=== PATIENT | male | born 1955 | race Caucasian/White ===

== ENCOUNTER 2019-05-14 02:23 | Emergency (ER) | payer MEDICARE, OTHER, SELFPAY ==
[2019-05-14 02:44] VITALS: BP 164/95; PULSE 78; RESP 16; O2SAT 98; BMI 34.2
--- NOTE | 2019-05-14 02:57 | ED.ABDPAIN ---
HPI - Abdominal Pain General Chief Complaint: Urogenital-Male Stated Complaint: poss kidney stone Time Seen by Provider: 05/14/19 02:44 Source: patient Mode of arrival: ambulatory Limitations: no limitations History of Present Illness HPI narrative: This is a 63-year-old male who comes to the emergency department with complaint of right flank pain. He states it started yesterday at 7:00 a.m., resolved BiPAP at noon. Then returned this evening at about 2:00 a.m.. Patient states he has not had any fevers. He felt a little nauseated but no vomiting. He states pain started in his right flank and is starting to radiate around towards the front. Patient denies any pain into the testicles. He did note some hematuria and dark urine tonight. He states it was not yesterday. He denies any pain with urination or urgency frequency or dysuria. Denies any issues with bowel movements. Patient has had kidney stones in the past and states this feels similar. He states he takes medication for chronic back pain as well as mood. He denies any prior surgeries Related Data Previous Rx's Medication Instructions Recorded ketorolac 10 mg PO TID PRN #14 tab 05/14/19 oxycodone 5 mg PO Q4-6H PRN #14 tab 05/14/19 tamsulosin [Flomax] 0.4 mg PO DAILY #7 cap 05/14/19 Allergies Allergy/AdvReac Type Severity Reaction Status Date / Time No Known Drug Allergies Allergy Verified 05/14/19 05:00 Review of Systems Review of Systems ROS Unobtainable: All systems reviewed & are unremarkable except as noted in HPI and below Constitutional Constitutional: Reports chills, Denies fever(s), Denies lethargy and Denies weakness Cardiovascular Cardiovascular: Denies chest pain and Denies dyspnea Respiratory Respiratory: Denies dyspnea Gastrointestinal Gastrointestinal: Reports abdominal pain (Right flank and belly), Denies change in bowel habits, Denies constipation, Denies diarrhea, Reports nausea and Denies vomiting Genitourinary Genitourinary: Reports as per HPI, Denies hematuria, Denies difficulty urinating, Denies dysuria, Reports flank pain, Denies testicular pain, Denies urinary frequency, Denies urinary hesitancy, Denies urinary incontinence and Denies urinary urgency Neurologic Neurologic: Denies weakness [facility] Medical History (Updated 05/14/19 @ 03:06 by Debbie Chavez DO) Chronic back pain (Acute) Social History Smoking Status: Never smoker Social History Smoking Status: Never smoker Exam Narrative Exam Narrative: GENERAL: Alert and oriented x three, obese male in moderate distress. HEENT: Head normocephalic, atraumatic, EOMI, pupils reactive, face symmetric, moist mucous membranes NECK: Supple, full range of motion CARDIOVASCULAR: Regular rate and rhythm without murmurs, rubs or gallops. RESPIRATORY: Breath sounds equal bilaterally, no wheezes rales or rhonchi. ABDOMEN: Soft, nontender to palpation. Normoactive bowel sounds all 4 quadrants. No guarding or rebound, rigidity, no mass : Very mild right CVA tenderness EXTREMITIES: Normal range of motion, no clubbing or edema. Neurovascularly intact NEUROLOGICAL: Cranial nerves II through XII grossly intact. Moving all extremities SKIN: Warm, dry, no petechiae, no rashes or lesions. Initial Vital Signs Initial Vital Signs: Vital Signs Pulse Rate 78 05/14/19 02:44 Respiratory Rate 16 05/14/19 02:44 Blood Pressure 164/95 H 05/14/19 02:44 Pulse Oximetry 98 05/14/19 02:44 Course Orders Ordered: ED Orders 05/14/19 02:39 Urinalysis and Microscopic Stat Urine Culture Stat 05/14/19 02:41 Complete Blood Count AUTO DIFF Stat Comprehensive Metabolic Panel Stat 05/14/19 03:01 US renal complete Stat Discontinued Medications Sodium Chloride (Normal Saline 0.9%) 1,000 mls @ 1,000 mls/hr IV BOLUS ONE Stop: 05/14/19 04:02 Last Infusion: 05/14/19 04:29 Dose: 0 mls/hr Documented by: Admin: 05/14/19 03:09 Dose: 1,000 mls/hr Documented by: ANGLE Ketorolac Tromethamine (Toradol) 30 mg IV NOW ONE Stop: 05/14/19 02:58 Last Admin: 05/14/19 03:09 Dose: 30 mg Documented by: ANGLE Ondansetron HCl (Zofran) 4 mg IV NOW ONE Stop: 05/14/19 02:58 Last Admin: 05/14/19 03:09 Dose: 4 mg Documented by: ANGLE Oxycodone/Acetaminophen (Endocet 5/325 Prepack) 1 bottle MISC SEEINSTR ONE Stop: 05/14/19 04:35 Last Admin: 05/14/19 05:00 Dose: 1 bottle Documented by: ANGLE Tamsulosin HCl (Flomax) 0.4 mg PO NOW ONE Stop: 05/14/19 04:21 Last Admin: 05/14/19 04:30 Dose: 0.4 mg Documented by: ANGLE Vital Signs Vital signs: Vital Signs - 8 hr 05/14/19 02:44 05/14/19 04:31 05/14/19 05:07 Temperature 98.1 F Pulse Rate 78 82 83 Respiratory Rate 16 20 16 Blood Pressure 164/95 H 145/88 H Blood Pressure [Right Arm] 156/77 H Pulse Oximetry 98 99 96 MDM - Abdominal Pain Lab Data Attestation: I reviewed the patient's lab results. Result diagrams: 05/14/19 02:41 05/14/19 02:41 Labs: Lab Results 05/14/19 05/14/19 05/14/19 Range/Units 02:39 02:41 02:41 WBC 11.6 H (4.5-11.0) X10^3/uL RBC 5.49 (4.5-5.9) X10^6/uL Hgb 18.7 H (13.5-17.5) g/dL Hct 54.7 H (41-53) % MCV 99.5 (80-100) fL MCH 34.1 H (26-34) PG MCHC 34.3 (30-36) % RDW 14.0 (11.6-14.8) % Plt Count 232 (150-400) X10^3/uL Neut % (Auto) 74.9 (50-75) % Lymph % (Auto) 15.8 L (25-40) % Dane % (Auto) 6.9 (3-14) % Eos % (Auto) 2.0 (2-4) % Baso % (Auto) 0.4 (0-2) % Neut # (Auto) 8700 H (7248-2620) /uL Lymph # (Auto) 1800 (3131-1627) /uL [place]ane # (Auto) 800 (0-900) /uL Eos # (Auto) 200 (0-450) /uL Baso # (Auto) 100 (0-100) /uL Sodium 138 (137-145) mmol/L Potassium 4.1 (3.4-5.1) mmol/L Chloride 98 (98-107) mmol/L Carbon Dioxide 26 (22-32) mmol/L BUN 21 H (9-20) mg/dL Creatinine 0.90 (0.66-1.25) mg/dL Estimated GFR > 60.0 (>60) mL/min BUN/Creatinine Ratio 23.3 H (6-22) Glucose 202 H (80-110) mg/dL Calcium 9.8 (8.4-10.2) mg/dL Total Bilirubin 0.8 (0.2-1.3) mg/dL AST 36 (17-59) IU/L ALT 68 (21-72) IU/L Alkaline Phosphatase 61 (38-126) U/L Total Protein 7.8 (6.3-8.2) g/dL Albumin 4.6 (3.5-5.0) g/dL Globulin 3.2 (1.7-4.1) g/dL Albumin/Globulin Ratio 1.4 (1.0-2.8) Urine Color Brown Urine Appearance Sl cloudy Urine pH 5.0 (4.5-8.0) Ur Specific [place] >=1.030 H (1.000-1.035) Urine Protein 2+ H (Negative) Urine Glucose (UA) Negative (Negative) g/dL Urine Ketones Trace H (NEGATIVE) Urine Occult Blood 3+ H (Negative) Urine Nitrate Negative (Negative) Urine Bilirubin Negative (NEGATIVE) Urine Urobilinogen 0.2 (0.2) E.U./dL Ur Leukocyte Esterase Negative (NEGATIVE) Urine RBC >100/hpf (0-5/HPF) Urine WBC 0-1/hpf (0-5/HPF) Ur Squamous Epith Cells 0-1 /hpf (0-5/HPF) Urine Bacteria Moderate (10-30) H (None) Urine Mucus 1+ H (Negative) Ur Culture Indicated? Specimen cultured Imaging Data US - abdomen: Radiologist's impression: Patient has 9 mm calculus within the proximal right ureter. Mild right hydro. On the left patient has a midpole cyst measuring 1.3 x 1 x 1.2 cm. No significant free fluid in the pelvis. Bladder is nondistended limiting evaluation. MDM Narrative Medical decision making narrative: Patient show a elevated white count 11.6, patient elevated hemoglobin hematocrit 18 54. Platelets are normal. Patient's electrolytes are normal, BUN is elevated 21 but a normal creatinine. Glucose is elevated 202 with normal LFTs.. Patient urine shows occult blood, negative for nitrates and leukocyte esterase, patient has greater than 100 RBCs, WBC 0-1 with 0-1 squamous epithelials and moderate bacteria. Urine was cultured. Patient has not had any UTI symptoms. He has slightly elevated white count but afebrile. Would wait for urine culture before starting antibiotics. Ultrasound shows 9mm proximal right ureteral stone. Patient is much more comfortable after toradol. Spoke with Dr. Hammond at urology, he is happy to follow up with the patient on Sunday. He asked that we start him on Flomax for a couple weeks. Have patient call the office at [phone], discussed likely Sunday follow up. Patient is much more comfortable after toradol. Discussed reasons to return emergently, patient has contact information and will call today, we discussed that often patients with 9 mm stones are not able to pass these so follow-up is important. Discharge Plan Departure Patient Disposition: Home Clinical Impression: Kidney stone Discharge Date/Time: 05/14/19 05:07 Instructions: DI for Kidney Stones Activity Restrictions/Additional Instructions: Follow up with urology at , I spoke with Dr Hammond with urology. Call [phone] this morning for an appointment. Take disk of images with you to your appointment. Continue flomax once daily. You may take alleve twice daily OR ketorolac every 8 hours as needed for pain. You may take tylenol up to 1000mg every 8 hours as needed for pain. You may take this with ibuprofen and/or oxycodone. Take oxycodone 1 tablet every 4-6 hours for pain. This medication can make you sleepy do not drive, perform hazardous activities or make any major decisions while taking it. Return to the Emergency Department for fevers greater than 100.4 F, rapidly worsening abdominal or flank pain, persistent nausea or vomiting, inability to urinate, lightheadedness, passing out or other new or concerning symptoms. Prescriptions: New oxycodone 5 mg tablet 5 mg PO Q4-6H PRN (Reason: pain) Qty: 14 RF: 0 tamsulosin [Flomax] 0.4 mg capsule 0.4 mg PO DAILY Qty: 7 RF: 0 ketorolac 10 mg tablet 10 mg PO TID PRN (Reason: pain) Qty: 14 RF: 0 Referrals: Mian Hammond MD [Non-Staff] - Kathie Brandt ARNP [Primary Care Provider] -
--- NOTE | 2019-05-14 03:01 | DI.US.S_ITS ---
PROCEDURE: US RENAL COMPLETE INDICATIONS: RIGHT FLANK PAIN; HISTORY STONES TECHNIQUE: Real-time scanning was performed of the kidneys and bladder, with image documentation. COMPARISON: None. FINDINGS: Kidneys: Kidneys are normal in size. Right kidney measures 12.2 cm long; left kidney measures 11.7 cm long. Right renal cortical thickness is 2.0 cm; left renal cortical thickness is 1.5 cm. Renal cortical echotexture is normal. There is a 9 mm proximal right ureteral stone with associated right-sided hydronephrosis. No no left-sided hydronephrosis or nephrolithiasis. No suspicious solid mass lesions. Incidental note of 1.3 cm left midpole renal cyst. Bladder: The urinary bladder is decompressed. No urinary bladder volume was measured on this study. The bilateral ureteral jets were not noted with color Doppler interrogation. (Of note, ureteral jets may not be detectable in up to 25% of cases due to insufficient differences in specific gravity between ureteral and bladder urine). Miscellaneous: No free pelvic fluid. IMPRESSION: 1. A 9 mm obstructing right proximal ureteral stone with associated right hydronephrosis. 2. A 1.3 cm left midpole renal cyst. If further evaluation is required, consider noncontrast CT of the abdomen and pelvis. No significant discrepancy with the night warehouse selector radiology preliminary report. Dictated by: Balbir Mohan M.D. on 05/14/2019 at 8:44 Approved by: Balbir Mohan M.D. on 05/14/2019 at 9:19
[2019-05-14 03:08] LABS: Add Manual Diff / Slide Review NO; Basophils Absolute Auto 100 /uL (0-100); Basophils Percent Auto 0.4 % (0-2); Eosinophils Absolute Auto 200 /uL (0-450); Hematocrit 54.7 % (41-53); Hemoglobin 18.7 g/dL (13.5-17.5); Lymphocytes Absolute Auto 1800 /uL (1100-4500); Lymphocytes Percent Auto 15.8 % (25-40); Mean Corpuscular HGB Conc 34.3 % (30-36); Mean Corpuscular Hemoglobin 34.1 PG (26-34); Mean Corpuscular Volume 99.5 fL (80-100); Monocytes Absolute Auto 800 /uL (0-900); Monocytes Percent Auto 6.9 % (3-14); Neutrophils Absolute Auto 8700 /uL (1500-7000); Neutrophils Percent Auto 74.9 % (50-75); Platelet Count 232 X10^3/uL (150-400); Red Blood Cell Count 5.49 X10^6/uL (4.5-5.9); White Blood Cell Count 11.6 X10^3/uL (4.5-11.0)
[2019-05-14] MEDS: SODIUM CHLORIDE 0.9% 1,000 ML 1000 ML IV (03:09)
[2019-05-14] MEDS: ONDANSETRON 4 MG/2 ML INJ IV (03:09)
[2019-05-14] MEDS: KETOROLAC 60 MG/2 ML VIAL 30 MG IV (03:09)
[2019-05-14 03:11] LABS: Alanine Aminotransferase 68 IU/L (21-72); Albumin 4.6 g/dL (3.5-5.0); Albumin Globulin Ratio 1.4 (1.0-2.8); Alkaline Phosphatase 61 U/L (38-126); Aspartate Aminotransferase 36 IU/L (17-59); BUN Creatinine Ratio 23.3 (6-22); Bilirubin Total 0.8 mg/dL (0.2-1.3); Blood Urea Nitrogen 21 mg/dL (9-20); Calcium 9.8 mg/dL (8.4-10.2); Carbon Dioxide 26 mmol/L (22-32); Chloride 98 mmol/L (98-107); Estimated Glomerular Filt Rate > 60.0 mL/min (>60); Globulin 3.2 g/dL (1.7-4.1); Glucose 202 mg/dL (80-110); HEMOLYSIS 16 (0-50); Potassium 4.1 mmol/L (3.4-5.1); Sodium 138 mmol/L (137-145); Total Protein 7.8 g/dL (6.3-8.2)
[2019-05-14 03:11] LABS: Appearance Urine UA SL CLOUDY; Bilirubin Urine UA NEGATIVE (NEGATIVE); Glucose Urine UA NEGATIVE (Negative); Ketones Urine UA TRACE (NEGATIVE); Leukocyte Esterase Urine UA NEGATIVE (NEGATIVE); Nitrite Urine UA NEGATIVE (Negative); Occult Blood Urine UA 3+ (Negative); Protein Urine UA 2+ (Negative); Specific Gravity Urine UA >=1.030 (1.000-1.035); Urobilinogen Urine UA 0.2 E.U./dL (0.2)
[2019-05-14 03:12] LABS: Color Urine UA BROWN
[2019-05-14 03:13] LABS: Bacteria Urine Moderate (10-30); RBC Urine >100/HPF (0-5/HPF); Squamous Epithelial Cell Urine 0-1 /HPF (0-5/HPF); WBC Urine 0-1/HPF (0-5/HPF)
[2019-05-14 03:14] LABS: Culture Indicated Urine Specimen Cultured; Mucus Urine 1+ (Negative)
[2019-05-14] MEDS: TAMSULOSIN 0.4 MG CAPSULE PO (04:30)
[2019-05-14 04:31] VITALS: BP 156/77; PULSE 82; RESP 20; O2SAT 99
[2019-05-14] MEDS: OXYCODONE/APAP 5/325 PREPACK 1 BOTTLE MISC (05:00)
[2019-05-14 05:07] VITALS: BP 145/88; PULSE 83; RESP 16; TEMP 36.7; O2SAT 96
== END 2019-05-14 05:07 | disposition home or self-care (01) ==
PROVIDERS: Emergency Provider Emergency Medicine; Family Provider Specialist; PCP Nurse Practitioner Family
DX: N20.0 Calculus of kidney (principal)
CPT/HCPCS: 36591; 76770; 80053; 81001; 85025; 87086; 96361; 96374; 96375; 99283; 99284; J1885; J2405

== ENCOUNTER 2022-04-12 09:29 | Emergency (ER) | payer OTHER, SELFPAY ==
[2022-04-12] VITALS (7 sets, daily range): BP systolic 160–181; BP diastolic 78–90; PULSE 71–83; RESP 16–18; TEMP 37.4; O2SAT 93–99; BMI 33.9
[2022-04-12] MEDS: SODIUM CHLORIDE 0.9% 1,000 ML 1000 ML IV (09:42)
--- NOTE | 2022-04-12 09:43 | DI.RAD.S_ITS ---
PROCEDURE: XR CHEST 1V INDICATIONS: overdose TECHNIQUE: One view of the chest was acquired. COMPARISON: None. FINDINGS: Surgical changes and devices: None. Lungs and pleura: Lungs are clear. No pleural effusions or pneumothorax. Mediastinum: Mediastinal contours appear normal. Heart size is normal. Bones and chest wall: No suspicious bony lesions. Overlying soft tissues appear unremarkable. IMPRESSION: No acute cardiopulmonary abnormality. Dictated by: Babar Donis M.D. on 04/12/2022 at 9:58 Approved by: Babar Donis M.D. on 04/12/2022 at 9:58
--- NOTE | 2022-04-12 09:43 | ED.OVERDOSE ---
HPI - Overdose General Chief Complaint: Toxicology Problem Stated Complaint: states Fentanyl OD Time Seen by Provider: 04/12/22 09:35 Source: patient Mode of arrival: Ambulatory Limitations: no limitations History of Present Illness HPI Narrative: This is a 66-year-old male history of hypertension and chronic opiate abuse who presents with complaint of overdose. Patient states that he thinks he overdosed on fentanyl. He states he bought a tablet of what was supposed to be 30 mg OxyContin and called a ?blueberry? patient snorted it and states he immediately started coughing his nose plugged up, patient states he felt nauseated he had some vomiting. He had about 4 episodes of solid stools 1 after the other. Patient states that he felt a little short of breath. He denies any chest pain or pressure. Patient denies any passing out he thinks he was wake. He initially described hallucinations but then states the room was just wobbly and distorted and he did not actually have any auditory or visual hallucinations. Patient denies any active chest pain or pressure, no abdominal, back or flank pain. He is not had any black or bloody stools. He is had normal urination. He states that he started the tablet at about 5 or 6:00 a.m. this morning. His symptoms feel about the same as when it started and have not improved but are not worsening. He states he does not take any prescriptions initially but then told nursing lisinopril. He denies surgeries. No known drug allergies. He states he is had chronic back pain used to be on and a prescription program this was stopped and he started using narcotics that he purchased on the street. He denies tobacco, denies regular alcohol, states that he does typically take OxyContin but denies other drug usage. Related Data Previous Rx's Medication Instructions Recorded ketorolac 10 mg tablet 10 mg PO TID PRN pain #14 tabs 05/14/19 oxycodone 5 mg tablet 5 mg PO Q4-6H PRN pain #14 tabs 05/14/19 tamsulosin 0.4 mg capsule (Flomax) 0.4 mg PO DAILY #7 caps 05/14/19 Allergies Allergy/AdvReac Type Severity Reaction Status Date / Time No Known Drug Allergies Allergy Verified 05/14/19 05:00 Review of Systems Review of Systems ROS Unobtainable: All systems reviewed & are unremarkable except as noted in HPI and below Patient History Medical History Chronic back pain Social History Smoking Status: Never smoker Smoking Status: Never smoker alcohol intake frequency: 0-2 drinks per day Substance Use Type: marijuana Exam Narrative Exam Narrative: GEN: well nourished, well appearing male, alert and oriented x 3, patient appears to be in mild distress. HEENT: Atraumatic, pupils are equal round reactive to light, extraocular movements are intact, patient has congestion of the right nare, no congestion of the left, TMs are clear with no fluid, there is no conjunctival pallor. Throat is clear without any exudates, erythema, tonsillar enlargement or uvular deviation HEART: Regular rate and rhythm without murmur, clicks, rubs. LUNGS:Lungs clear to auscultation, no wheezes, rales, crackles, chest moves symmetrically ABD:bowel sounds normal, soft, non-tender, no guarding, rebound, rigidity, no masses noted, no hepatosplenomegaly :No CVA tenderness MSCL: Non-tender, no muscle atrophy, muscles strength 5/5 upper and lower extremities, full range of motion, normal gait NEURO:CN 2-12 intact, sensation normal SKIN: Patient has small abrasion but no other rashes or skin changes. Initial Vital Signs Initial Vital Signs: Vital Signs Pulse Rate 83 04/12/22 09:37 Blood Pressure 176/84 H 04/12/22 09:37 Pulse Oximetry 99 04/12/22 09:37 Scores GCS [place] coma scale eye opening: Spontaneous [place] coma scale verbal response: Orientated [place] coma scale motor response: Obey commands [place] coma scale total score: 15 Course Orders Ordered: Discontinued Medications Sodium Chloride (Normal Saline 0.9%) 1,000 mls @ 1,000 mls/hr IV BOLUS ONE Stop: 04/12/22 10:34 Last Infusion: 04/12/22 09:54 Dose: 0 mls/hr Documented By: Admin: 04/12/22 09:42 Dose: 1,000 mls/hr Documented By: DONNA Naloxone HCl (Naloxone 4 Mg Nasal [place]) 4 mg MISC SEEINSTR ONE Stop: 04/12/22 11:16 Vital Signs Vital signs: Vital Signs - 8 hr 04/12/22 09:44 04/12/22 09:37 04/12/22 09:37 Temperature 99.4 F Pulse Rate 83 83 Respiratory Rate 18 Blood Pressure 174/84 H 176/84 H Pulse Oximetry 99 99 Oxygen Delivery Method Room Air 04/12/22 09:46 04/12/22 09:46 Temperature Pulse Rate 79 Respiratory Rate 16 Blood Pressure 160/78 H Pulse Oximetry 99 Oxygen Delivery Method MDM - Overdose Lab Data Result diagrams: 04/12/22 09:50 04/12/22 09:50 Labs: Lab Results 04/12/22 04/12/22 04/12/22 Range/Units 09:50 09:50 09:50 WBC 7.5 (4.5-11.0) X10^3/uL RBC 4.25 L (4.5-5.9) X10^6/uL Hgb 14.0 (13.5-17.5) g/dL Hct 40.1 L (41-53) % MCV 94.4 (80-100) fL MCH 32.9 (26-34) PG MCHC 34.9 (30-36) % RDW 12.8 (11.6-14.8) % Plt Count 199 (150-400) X10^3/uL Neut % (Auto) 86.3 H (50-75) % Lymph % (Auto) 8.6 L (25-40) % [place]ess % (Auto) 3.6 (3-14) % Eos % (Auto) 1.2 L (2-4) % Baso % (Auto) 0.3 (0-2) % Neut # (Auto) 6400 (3269-9851) /uL Lymph # (Auto) 600 L (3680-6705) /uL [place]ess # (Auto) 300 (0-900) /uL Eos # (Auto) 100 (0-450) /uL Baso # (Auto) 0 (0-100) /uL Sodium 141 (137-145) mmol/L Potassium 4.0 (3.4-5.1) mmol/L Chloride 112 H (98-107) mmol/L Carbon Dioxide 21 L (22-32) mmol/L BUN 30 H (9-20) mg/dL Creatinine 0.86 (0.66-1.25) mg/dL Estimated GFR > 60 (>60) mL/min BUN/Creatinine Ratio 34.9 H (6-22) Glucose 129 H (80-110) mg/dL Lactate 1.7 (0.7-2.1) mmol/L Calcium 9.1 (8.4-10.2) mg/dL Total Bilirubin 0.4 (0.2-1.3) mg/dL Conjugated Bilirubin 0.0 (0.0-0.3) md/dL Unconjugated Bilirubin 0.4 (0.0-1.1) mg/dL AST 30 (17-59) IU/L ALT 33 (<50) IU/L Alkaline Phosphatase 61 (38-126) U/L Total Creatine Kinase 141 (55-170) U/L CK-MB (CK-2) 1.76 (<2.37) ng/mL CK-MB (CK-2) Rel Index 1.2 L (1.5-5.0) % Troponin I < 0.012 (0.01-0.034) ng/mL Total Protein 6.8 (6.3-8.2) g/dL Albumin 4.1 (3.5-5.0) g/dL Globulin 2.7 (1.7-4.1) g/dL Albumin/Globulin Ratio 1.5 (1.0-2.8) Salicylates < 1.0 (<20) mg/dL Acetaminophen < 10 (10-30) ug/mL Ethyl Alcohol < 10 ( - 10) mg/dL Imaging Data Chest x-ray: Radiologist's Impression: [address] [id number] XRay Report Signed Patient: Alli Graves MR#: [id number] : 1955 Acct:[id number] Age/Sex: 66 / M Date of Service: 04/12/22 Loc: ED Accession Number: [id number] ?? Procedure: XR chest 1V Ordering Provider: Debbie Chavez D.O. PROCEDURE:? XR CHEST 1V ? INDICATIONS:? overdose ? TECHNIQUE:? One view of the chest was acquired.? ? COMPARISON:? None. ? FINDINGS:? ? Surgical changes and devices:? None.? ? Lungs and pleura:? Lungs are clear.? No pleural effusions or pneumothorax.? ? Mediastinum:? Mediastinal contours appear normal.? Heart size is normal.? ? Bones and chest wall:? No suspicious bony lesions.? Overlying soft tissues appear unremarkable.? ? IMPRESSION:? No acute cardiopulmonary abnormality. ? ? Dictated by: Babar Donis M.D. on 04/12/2022 at 9:58 ? ? Approved by: Babar Donis M.D. on 04/12/2022 at 9:58 ECG Data Attestation: I personally reviewed and interpreted this ECG as follows: Prior ECG tracings: not available for review Interpretation: Sinus rhythm with first-degree AV block rate 80 1p are 252 QRS 90 QTC 4 32. Q-wave in lead 3. No acute ST changes noted. No priors available. MDM Narrative Medical decision making narrative: This is a 66-year-old male who presents to the emergency department with reported overdose. Patient thought he had purchase oxycodone snorted it and had an atypical reaction. Patient states his symptoms have not totally resolved. His EKG, chest x-ray and lab work do not show any other major changes. Suspect patient had something different than the narcotic that he was expecting. He was concerned about fentanyl but he may or may not have ingested this the reaction that he describes seems more atypical for fentanyl overdose. Patient was able to wake up enough and drove himself here and is alert, appropriate and does not appear to be in any danger at this time. Reviewed all of today's findings with him. We did try to get a drug screen patient did not wish to give 1 although it does not change his outcome it might be helpful to give him an idea of what he may have ingested today. On recheck patient feels somewhat improved. He is alert he is appropriate, I think he is safe for discharge we reviewed all his findings today. He defers drug screen. We did discuss Narcan usage and he would be happy to take a Narcan prepack home with him. Offered him consultation with social work he defers, defers a phone call in the next day or so as well but has express mild interest so we did discuss potential resources. Naloxone at Discharge Patient criteria for naloxone at discharge: Other reason (patient dispensed with narcan) Discharge Plan Departure Patient Disposition: Home Clinical Impression: Substance Abuse Activity Restrictions/Additional Instructions: Please follow-up primary to discuss options for your substance abuse there are programs available that might be helpful to you if you wish to pursue this. You are also being provided a prepack of Narcan for potential opiate overdose and instructions. It would be beneficial for you to share this with friends or family that you spend time with so that in the event of a life-threatening overdose they can assist you. Please return for new or worsening symptoms, passing out, new alterations in mental status, worsening chest pain or shortness of breath, persistent vomiting, black or bloody stools or other new or concerning symptoms. Prescriptions: No Action oxycodone 5 mg tablet 5 mg PO Q4-6H PRN (Reason: pain) Qty: 14 0RF tamsulosin [Flomax] 0.4 mg capsule 0.4 mg PO DAILY Qty: 7 0RF ketorolac 10 mg tablet 10 mg PO TID PRN (Reason: pain) Qty: 14 0RF Referrals: Kathie Brandt ARNP [Primary Care Provider] - Visit Report Forms: Patient Portal/API
[2022-04-12 10:09] LABS: Add Manual Diff / Slide Review NO; Basophils Absolute Auto 0 /uL (0-100); Basophils Percent Auto 0.3 % (0-2); Eosinophils Absolute Auto 100 /uL (0-450); Eosinophils Percent Auto 1.2 % (2-4); Hematocrit 40.1 % (41-53); Lymphocytes Absolute Auto 600 /uL (1100-4500); Lymphocytes Percent Auto 8.6 % (25-40); Mean Corpuscular HGB Conc 34.9 % (30-36); Mean Corpuscular Hemoglobin 32.9 PG (26-34); Mean Corpuscular Volume 94.4 fL (80-100); Monocytes Absolute Auto 300 /uL (0-900); Monocytes Percent Auto 3.6 % (3-14); Neutrophils Absolute Auto 6400 /uL (1500-7000); Neutrophils Percent Auto 86.3 % (50-75); Platelet Count 199 X10^3/uL (150-400); Red Blood Cell Count 4.25 X10^6/uL (4.5-5.9); Red Cell Distribution Width 12.8 % (11.6-14.8); White Blood Cell Count 7.5 X10^3/uL (4.5-11.0)
[2022-04-12 10:24] LABS: Acetaminophen < 10 ug/mL (10-30); Alanine Aminotransferase 33 IU/L (<50); Albumin 4.1 g/dL (3.5-5.0); Albumin Globulin Ratio 1.5 (1.0-2.8); Alkaline Phosphatase 61 U/L (38-126); Aspartate Aminotransferase 30 IU/L (17-59); BUN Creatinine Ratio 34.9 (6-22); Bilirubin Total 0.4 mg/dL (0.2-1.3); Bilirubin Unconjugated 0.4 mg/dL (0.0-1.1); Blood Urea Nitrogen 30 mg/dL (9-20); Calcium 9.1 mg/dL (8.4-10.2); Carbon Dioxide 21 mmol/L (22-32); Chloride 112 mmol/L (98-107); Creatine Kinase 141 U/L (55-170); Estimated Glomerular Filt Rate > 60 mL/min (>60); Ethanol (ETOH) < 10 mg/dL; Globulin 2.7 g/dL (1.7-4.1); Glucose 129 mg/dL (80-110); HEMOLYSIS < 15 (0-50); Lactate (Lactic Acid) 1.7 mmol/L (0.7-2.1); Salicylate < 1.0 mg/dL (<20); Sodium 141 mmol/L (137-145); Total Protein 6.8 g/dL (6.3-8.2)
[2022-04-12 10:34] LABS: Troponin I < 0.012 ng/mL (0.01-0.034)
[2022-04-12 10:39] LABS: CKMB % Relative Index 1.2 % (1.5-5.0); Creatine Kinase MB 1.76 ng/mL (<2.37)
--- NOTE | 2022-04-12 10:46 | PC.NURSE ---
pt refuses to give a urine sample
== END 2022-04-12 11:41 | disposition home or self-care (01) ==
PROVIDERS: Emergency Provider Emergency Medicine; Family Provider Specialist; PCP Nurse Practitioner Family
DX: T40.411A Poisoning by fentanyl or fentanyl analogs, accidental (unintentional), initial encounter (principal)
CPT/HCPCS: 36415; 71045; 80053; 80076; 80320; 80329; 82550; 82553; 83605; 84484; 85025; 93005; 93010; 99284; G0480